=== PATIENT | male | born 1995 | race Hispanic/Latino ===

== ENCOUNTER 2018-09-30 20:15 | Emergency (ER) | payer OTHER, SELFPAY ==
[2018-09-30 20:20] VITALS: BP 141/86; PULSE 145; RESP 15; TEMP 39.2; O2SAT 98; BMI 26.6
[2018-09-30] MEDS: ACETAMINOPHEN 325 MG TABLET 975 MG PO (20:26)
--- NOTE | 2018-09-30 20:32 | ED_ITS ---
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 Has been taking Tylenol for his symptoms. Has been taking cough drops for his symptoms. Still tolerating oral intake. Related Data Allergies Allergy/AdvReac Type Severity Reaction Status Date / Time No Known Drug Allergies Allergy Verified 09/30/18 20:26 Review of Systems Constitutional Reports fever(s) and Reports headache(s) ENT Ears, Nose, Mouth, and Throat: Reports headache(s), Reports sinus pressure and Reports sore throat Cardiovascular Denies chest pain and Denies dyspnea Respiratory Reports cough and Denies dyspnea Gastrointestinal Gastrointestinal: Denies nausea and Denies vomiting Musculoskeletal Denies myalgias and Denies arthralgias Integumentary/Breasts Denies rash Neurologic Denies behavioral changes and Reports headache(s) Psychiatric Denies behavioral changes Hematologic/Lymphatic Denies easy bleeding and Denies easy bruising PFSH Medical History Healthy adult (Acute) Social History Smoking Status: Unknown if ever smoked Social History Smoking Status: Unknown if ever smoked Exam Initial Vital Signs Initial Vital Signs: Vital Signs Temperature 102.6 F H 09/30/18 20:20 Pulse Rate 145 H 09/30/18 20:20 Respiratory Rate 15 09/30/18 20:20 Blood Pressure 141/86 H 09/30/18 20:20 Pulse Oximetry 98 09/30/18 20:20 Const General: cooperative, healthy appearing, comfortable, well developed, well groomed and No acute distress Orientation: alert, awake and oriented x3 HENMT Head: normal to inspection and normocephalic Ears: other (Bilateral tympanic membranes bulging without erythema.) Throat: postnasal drainage Resp Effort & Inspection: normal respiratory effort Auscultation: clear to auscultation bilaterally Cardio Rate: tachycardic Rhythm: regular rhythm GI Inspection: non-distended Palpation: soft Skin Lesions: no lesions Rashes: no rashes Neuro General: alert and awake Extrem General: normal to inspection and capillary refill normal Course Orders Ordered: ED Orders 02/28/19 20:34 Influenza A and B by PCR Rapid Stat Discontinued Medications Acetaminophen (Tylenol) 975 mg PO NOW ONE Stop: 09/30/18 20:25 Last Admin: 09/30/18 20:26 Dose: 975 mg Vital Signs - 8 hr 09/30/18 20:20 Temperature 102.6 F H Pulse Rate 145 H Respiratory Rate 15 Blood Pressure 141/86 H Pulse Oximetry 98 MDM - URI/Sore Throat Lab Data Attestation: I reviewed the patient's lab results. Lab Results 09/30/18 Range/Units 20:34 Influenza A & B (PCR) Positive, type a A (Negative) Point of Care Testing Rapid Strep A Negative [facility] Narrative Medical decision making narrative: Strep negative, flu positive, he did have a flu shot this year. Patient has had symptoms for greater than 48 hr. We did discuss Tamiflu however given the length of his symptoms will hold on this for right now. He was given the expected course of treatment. He will follow up with his medical department regarding work-related restrictions. He is given return precautions. He expressed understanding and agreement with plan. Discharge Plan Departure Patient Disposition: Home Clinical Impression: Influenza Instructions: DI for Influenza -- Adult Activity Restrictions/Additional Instructions: Your lab tests today did come back positive for the flu. Recommend that you continue with the medications that was given to you by your medical department. Continue to increase your fluid intake. Talk with your medical department tomorrow to discuss work-related restrictions. Return to the emergency department for any new or worsening symptoms
[2018-09-30 21:18] VITALS: BP 139/81; PULSE 114; RESP 20; TEMP 37.7; O2SAT 99
== END 2018-09-30 21:19 | disposition home or self-care (01) ==
PROVIDERS: Emergency Provider Emergency Medicine
DX: J11.1 Influenza due to unidentified influenza virus with other respiratory manifestations (principal)
CPT/HCPCS: 87400; 87880; 99282; 99283